=== PATIENT | female | born 1990 | race Caucasian/White ===

== ENCOUNTER → 2021-01-17 | Outpatient (CLI) | payer OTHER | LOC: HEART 5 11:00 | DX: R07.9 Chest pain, unspecified (principal); I08.1 Rheumatic disorders of both mitral and tricuspid valves; R93.1 Abnormal findings on diagnostic imaging of heart and coronary circulation | CPT/HCPCS: 93306 ==

== ENCOUNTER → 2021-03-05 | Outpatient (CLI) | payer OTHER | LOC: MAMO 10:00 → US 10:30 | DX: R22.2 Localized swelling, mass and lump, trunk (principal); N63.0 Unspecified lump in unspecified breast | CPT/HCPCS: 76641-LT; 76641-RT ==

== ENCOUNTER → 2021-10-24 | Outpatient (CLI) | payer OTHER | LOC: HEART 5 11:26 | DX: U07.1 COVID-19 (principal) | CPT/HCPCS: 93306 ==